=== PATIENT | male | born 1985 | race African-American/Black ===

== ENCOUNTER 2017-06-11 22:50 | Emergency (ER) | payer SELFPAY ==
[~2017-06-11] VITALS: Ht 190.5 cm; Wt 95.2 kg
[2017-06-11] MEDS ORDERED: ALBUTEROL17 GM INH (23:00)
[2017-06-11] MEDS ORDERED: AMOXICILLIN875 MG PO (23:38)
[2017-06-11] MEDS ORDERED: NAPROSYN500 MG PO (23:38)
== END 2017-06-11 23:38 | disposition home or self-care (01) ==
LOC: SED 22:50
DX: K04.7 Periapical abscess without sinus (principal); J45.909 Unspecified asthma, uncomplicated; F17.200 Nicotine dependence, unspecified, uncomplicated; Z79.899 Other long term (current) drug therapy
CPT/HCPCS: 99282